=== PATIENT | male | born 1970 | race Caucasian/White ===

== ENCOUNTER 2019-11-28 21:34 | Emergency (ER) | payer MEDICAID, SELFPAY ==
[~2019-11-28] VITALS: Ht 175.3 cm; Wt 85.7 kg
[2019-11-28 22:15] VITALS: BP_SYST 114
[2019-11-28 23:11] LABS: HEMOGLOBIN 16.9 g/dL (14.0-18.0); LYMPHOCYTES # (AUTO) 1.7 K/uL (1.0-5.5); MEAN CORPUSCULAR HEMOGLOBIN 28 pg (27-31); MONOCYTES # (AUTO) 0.4 K/uL (0.0-1.0); NEUTROPHILS # (AUTO) 2.8 K/uL (1.8-7.7)
[2019-11-28 23:17] LABS: BASOPHILS % (AUTO) 0.4 % (0.0-2.0); HEMATOCRIT 50.1 % (36-54); LYMPHOCYTES % (AUTO) 34.1 % (20.5-51.5); MEAN CORPUSCULAR HGB CONC 34 % (32-36); MEAN CORPUSCULAR VOLUME 84 fL (79.0-98.0); MONOCYTES % (AUTO) 7.9 % (1.7-9.3); NEUTROPHILS % (AUTO) 57.6 % (40.0-70.0); PLATELET COUNT (AUTO) 185 K/uL (130-430); RED CELL DISTRIBUTION WIDTH 14.2 % (9.0-15.0); WHITE BLOOD COUNT (AUTO) 4.9 K/uL (4.8-10.8)
[2019-11-28 23:22] LABS: CALCIUM 8.8 mg/dL (8.4-11.0); CREATININE 1.52 mg/dL (0.55-1.30); POTASSIUM 4.3 mmol/L (3.5-5.1)
[2019-11-28 23:27] LABS: ALBUMIN 3.8 g/dL (3.4-4.8); TOTAL BILIRUBIN 0.4 mg/dL (0.0-1.0)
--- NOTE | 2019-11-28 23:45 | NUR ---
Patient to ER bed 1 to gown for evaluation. Side rails up. Report given to Lori.
--- NOTE | 2019-11-28 23:45 | NUR ---
PT AAO AND AMBULATORY C/O ABDOMINAL PAIN WITH LOW GRADE FEVER FOR ONE WEEK. PT REPORTS NAUSEA AND DIARRHEA PAST FIVE DAYS.
--- NOTE | 2019-11-28 23:55 | NUR ---
ER at bedside examining patient.
[2019-11-29] MEDS ORDERED: MORPHINE 4 MG/ML INJ. SYRINGE IVP ONE (00:45)
[2019-11-29] MEDS ORDERED: NACL 0.9% 1,000 ML IV ONE (00:45)
[2019-11-29] MEDS ORDERED: ONDANSETRON HCL 4 MG/2 ML VIAL IVP ONE (00:45)
--- NOTE | 2019-11-29 00:55 | NUR ---
PT DENIES ANY PAIN. REFUSED MORPHINE.
--- NOTE | 2019-11-29 01:32 | NUR ---
Pt currently resting. No complaints at this time. Symmetric chest rise and fall.
[2019-11-29] MEDS ORDERED: AZITHROMYCIN 250 MG TABLET PO ONE (02:30)
[2019-11-29] MEDS ORDERED: cefTRIAXone 1 GM IVPB PREMIX 50 ML IV ONE (02:30)
--- NOTE | 2019-11-29 03:00 | NUR ---
Pt requesting for snack, pudding provided to the patient.
[2019-11-29 03:58] LABS: PROTHROMBIN TIME 10.4 SECS (9.5-12.5)
[2019-11-29 03:59] LABS: C-REACTIVE PROTEIN QUANT 1.5 mg/dL (0-0.5)
--- NOTE | 2019-11-29 04:50 | NUR ---
Pt requesting earplugs, provided to patient.
--- NOTE | 2019-11-29 06:20 | NUR ---
Dr. Velásquez at bedside discussing labs and d/c to patient.
[2019-11-29 06:28] LABS: BILIRUBIN,URINE NEGATIVE (NEGATIVE); BLOOD, URINE NEGATIVE (NEGATIVE); CLARITY/URINE CLEAR (CLEAR); COLOR,URINE YELLOW (YELLOW); GLUCOSE,URINE NEGATIVE (NEGATIVE); KETONES,URINE 1+ (NEGATIVE); LEUKOCYTE ESTERASE ,URINE NEGATIVE (NEGATIVE); NITRITE, URINE NEGATIVE (NEGATIVE); PROTEIN URINE NEGATIVE (NEGATIVE); UROBILINOGEN,URINE 0.2 (0.2-1.0)
[2019-11-29 07:17] VITALS: BP_SYST 120
--- NOTE | 2019-11-29 07:17 | NUR ---
Patient given written and verbal discharge instructions and verbalizes understanding. ER MD discussed with patient the results and treatment provided. Patient in stable condition. ID arm band removed. IV catheter removed intact and dressing applied, no active bleeding. Rx of levaquin given. Patient educated on pain management and to follow up with PMD. Opportunity for questions provided and answered. Medication side effect fact sheet provided.
== END 2019-11-29 07:17 | disposition home or self-care (01) ==
LOC: SED 21:34
DX: J18.9 Pneumonia, unspecified organism (principal)
CPT/HCPCS: 36415; 36600; 71045; 74176; 80053; 81003; 82550; 82728; 82803; 83605; 83615; 83690; 83880; 84484; 85025; 85384; 85610; 85730; 86140; 87040; 93005; 96365; 99285; J0696; J7030; Q0144